=== PATIENT | female | born 1955 | race Two or more races ===

== ENCOUNTER → 2025-08-06 | Outpatient (REF) | payer MEDICARE ==
[2025-08-06 19:05] LABS: PLATELET COUNT, AUTOMATED 151 10^3/uL (150-450)
[2025-08-06 19:15] LABS: PSA SCREENING 1.19 NG/ML (< 4.00)
[2025-08-06 19:17] LABS: ALT/SGPT 20.0 U/L (7.0-40); AST/SGOT 16.0 U/L (<34); CALCIUM LEVEL 8.9 MG/DL (8.3-10.6); CARBON DIOXIDE LEVEL 31.0 MMOL/L (20-31); CHLORIDE LEVEL 105.0 MMOL/L (98-107); CHOLESTEROL LEVEL 116.0 MG/DL (<200); CHOLESTEROL RISK RATIO 2.48 (<5); CREATININE FOR GFR 1.05 MG/DL (0.55-1.30); GLOMERULAR FILTRATION RATE 57.9 (>45); LDL CHOLESTEROL 57.0 MG/DL (<100); NON-HDL-C 69.4 MG/DL; POTASSIUM SERUM 4.5 MMOL/L (3.5-5.1); SODIUM LEVEL 142.0 MMOL/L (136-145); TRIGLYCERIDES LEVEL 62.0 MG/DL (<150)
== END ==
LOC: M LABDRWCV 17:22
PROVIDERS: ATTEND Family Medicine
DX: Z00.00 Encounter for general adult medical examination without abnormal findings (principal); Z12.5 Encounter for screening for malignant neoplasm of prostate; Z13.6 Encounter for screening for cardiovascular disorders
CPT/HCPCS: 36415; 80053; 80061; 84443; 85027; G0103